=== PATIENT | male | born 1960 | race Caucasian/White ===

== ENCOUNTER 2017-05-10 13:12 | Day surgery (SDC) | payer OTHER, BC ==
[2017-05-10] MEDS ORDERED: PROPOFOL 20 ML (15:28)
[2017-05-10] MEDS ORDERED: FENTAnyl 50 MCG/ML VIAL ×2 (15:28)
[2017-05-10] MEDS ORDERED: MIDAZOLAM 1 MG/ML 2 ML INJ (15:28)
== END 2017-05-10 17:36 | disposition home or self-care (01) ==
LOC: GIL 13:12
DX: Z12.11 Encounter for screening for malignant neoplasm of colon (principal); D12.5 Benign neoplasm of sigmoid colon; K57.90 Diverticulosis of intestine, part unspecified, without perforation or abscess without bleeding; K64.8 Other hemorrhoids
CPT/HCPCS: 45380; 88305